=== PATIENT | male | born 1960 | race Caucasian/White ===

== ENCOUNTER 2016-04-20 08:30 | Day surgery (SDC) | payer MEDICARE ==
[2015-06-28 02:24] VITALS: BP 127/66
[~2016-04-20 08:30] MED LIST: PROPOFOL 200 MG/20 ML VIAL IV ONE; PROPOFOL 500 MG/50 ML VIAL IV ONE
--- NOTE | 2016-04-21 09:59 | Operative Note ---
SURGEON: Bart Iglesias MD ANESTHESIA: MAC anesthesia. ESTIMATED BLOOD LOSS: None. COMPLICATIONS: None. PREOPERATIVE DIAGNOSES: 1. Screening colonoscopy. 2. History of colon polyps. POSTOPERATIVE DIAGNOSIS: Colon polyps. PROCEDURE PERFORMED: Colonoscopy with polypectomy. DESCRIPTION OF PROCEDURE: Patient was brought to the endoscopy suite and placed in the left lateral decubitus position. A rectal examination was performed which was normal. The colonoscope was inserted and passed to the cecum. The appendiceal orifice and ileocecal valve were identified. The prep was somewhat poor though decent visualization was gained with washing. In the transverse colon, there were 2 large sessile polyps both approximately 1.5 to 2 cm right next to each other in the transverse colon and both were completely removed with a snare. The sites were hemostatic. The area was tattooed for future reference. The colonoscope was then removed. There were no other polyps seen. FINDINGS: Two 1.5 cm sessile polyps right next to each other in the transverse colon and both were completely removed with a snare and the area tattooed. RECOMMENDATIONS: I recommend a repeat colonoscopy in 1 year due to the poor prep and the polyps. MTDD
== END 2016-04-20 08:32 ==
LOC: OPSURG 08:30
PROVIDERS: ATTEND Colon & Rectal Surgery
DX: Z12.11 Encounter for screening for malignant neoplasm of colon (principal); D12.3 Benign neoplasm of transverse colon
CPT/HCPCS: J2704 ×2; 45385; S1016

== ENCOUNTER 2016-11-06 16:39 | Outpatient (CLI) | payer MEDICARE, OTHER ==
[2015-06-28 02:24] VITALS: BP 127/66
== END 2016-11-06 17:00 ==
LOC: LAB 16:39
PROVIDERS: ATTEND Family Medicine
DX: Z11.59 Encounter for screening for other viral diseases (principal)
CPT/HCPCS: 36415; 86803

== ENCOUNTER 2017-02-14 15:06 | Outpatient (CLI) | payer MEDICARE, MEDICAID ==
[2015-06-28 02:24] VITALS: BP 127/66
[2017-02-14 15:32] LABS: APPEARANCE,URINE Clear (CLEAR); COLOR,URINE Yellow (YELLOW); OCCULT BLOOD,URINE Negative (NEGATIVE); UROBILINOGEN URINE 0.2 Eu (0.2-1.0)
[2017-02-14 15:34] LABS: BASOPHILS % 0.5 (0.0-1.5); EOSINOPHILS % 3.1 % (0.0-6.8); MEAN CORPUSCULAR HEMOGLOBIN 34.5 pg (28.0-34.0); MEAN CORPUSCULAR VOLUME 98.6 fl (80.0-100.0); MONOCYTES % 4.6 % (0.0-11.0); NEUTROPHILS # 6.5 # k/uL (1.4-7.7)
[2017-02-14 15:53] LABS: eGFR (African) > 60; eGFR (Non-African) > 60
--- NOTE | 2017-02-14 16:20 | Diagnostic Imaging Report ---
[facility] [address] [facility] [address] [address] Report Submission Date: Feb 14, 2017 3:49:09 PM DENTAL MECHANIC Patient Study Name: VISHNU ALMEIDA Date: Feb 14, 2017 3:29:05 PM DENTAL MECHANIC Modality Type: CR Gender: M Description: ABDOMEN : 56 Institution: [facility] Physician: SALLY DAVIS - NEREIDA Examination: Obstruction series History: Abdominal discomfort Findings: 4 views obtained of the abdomen. No abnormal dilation of the large or small bowel. Air and stool throughout the large bowel. No suspicious calcification projecting over the renal fossa or the lower pelvic region. Pelvic phleboliths. Lumbar degenerative changes. Impression: Large bowel stool. No obstruction. No suspicious calcifications by plain film sensitivity. Electronically signed on Feb 14, 2017 3:49:09 PM DENTAL MECHANIC by: Madi GARCIA
== END 2017-02-14 15:07 ==
LOC: LAB 15:06
PROVIDERS: ATTEND Family Medicine
DX: I10 Essential (primary) hypertension (principal); R10.9 Unspecified abdominal pain; R10.11 Right upper quadrant pain
CPT/HCPCS: 36415; 74020; 80053; 81002; 85025

== ENCOUNTER 2017-10-26 13:47 | Emergency (ER) | payer MEDICARE ==
[2015-06-28 02:24] VITALS: BP 127/66
[2017-10-26] MEDS ORDERED: 0.9 % SODIUM CHLORIDE 500 ML IV ONE (13:50)
[2017-10-26] MEDS ORDERED: EPINEPHrine 0.1 MG/ML DISP.SYRIN IVP STA ×6 (13:54→14:30)
[2017-10-26] MEDS ORDERED: NALOXONE HCL 2 MG/2 ML ONE (14:00)
[2017-10-26 14:29] LABS: MEAN CORPUSCULAR HEMOGLOBIN 35.3 pg (28.0-34.0); MEAN CORPUSCULAR VOLUME 93.9 fl (80.0-100.0)
[2017-10-26] MEDS ORDERED: SODIUM BICARBONATE 50 MEQ/50 ML SYRINGE IV ONE (14:31)
[2017-10-26 15:02] LABS: eGFR (African) > 60; eGFR (Non-African) > 60
[2017-10-26 15:31] LABS: SEGMENTED NEUTROPHILS % 45 % (39-79)
[2017-10-26 15:32] LABS: EOSINOPHILS % 3 % (0-7); MONOCYTES % 16 % (0-11); TOXIC VACUOLATION PRESENT
[2017-10-26] MEDS ORDERED: 0.9 % SODIUM CHLORIDE 1,000 ML IV ONE (18:12)
--- NOTE | 2017-10-26 18:15 | ED Physician Documentation ---
Cardiopulmonary Resuscitation - HISTORIAN Historian: paramedics - HPI Chief Complaint: CPR Witnessed Arrest?: No CPR Initiated Prior to MD Arrival?: Yes Down-Time before ACLS?: 10 (this is estimate) Further Comments: yes (per paramedics he was not witness collapse. He was thought to have a seizure and he was in full arrest in ambulance.) - INITIAL FINDING Mentation: unresponsive Respirations: agonal respiration Pulse: absent Rhythm: PEA-klaus Glucose: 223 - TREATMENT INITIATED EDUCATIONAL AIDE Oxygen: [id number] CRP/Thumper: Yes (Auto Pulse ) IV Access: Yes IV Fluids: Yes - MEDICATIONS GIVEN EDUCATIONAL AIDE How Many Doses of Epinephrine?: 6 Vasopressin Given?: No Amiodorone Given?: No Sodium Bicarb Given?: Yes Lidocaine Given?: No - ROS CONST: other (unknown ) EYES/ENT: none CVS/RESP: other (Unknown ) MS/SKIN/LYMPH: denies: rash - PAST HX Past History: cardiac disease Allergies/Adverse Reactions: Allergies Allergy/AdvReac Type Severity Reaction Status Date / Time No Known Allergies Allergy Verified 06/27/15 21:47 - SOCIAL HX Smoking History: other (Unknown ) Alcohol Use: heavy - FAMILY HX Family History: No - VITAL SIGNS Vital Signs: Vital Signs Temp Pulse Resp BP Pulse Ox 0 L 5 L 127/66 10/26/17 13:47 10/26/17 13:47 06/27/15 22:55 - REVIEWED ASSESSMENTS Nursing Assessment Reviewed: Yes Vitals Reviewed: Yes Progress - Progress Progress: see nurses note for code progression DG ED Results Lab/Radiology - Lab Results Lab Results: Lab Results 10/26/17 10/26/17 10/26/17 14:20 14:20 14:20 WBC RBC Hgb Hct MCV MCH MCHC RDW Plt Count Seg Neutrophils % Band Neutrophils % Lymphocytes % Monocytes % Eosinophils % Toxic Vacuolation Plt Morphology Comment RBC Morph Comment PT 12.5 Seconds H Seconds (9.4-11.6) INR 1.19 (0.9-1.2) D-Dimer > 5000 ng/mL H ng/mL (6.0-682) Sodium 117 mmol/L L* mmol/L (136-145) Potassium 1.8 mmol/L L* mmol/L (3.5-5.1) Chloride 61 mmol/L L mmol/L (98-107) Carbon Dioxide 33 mmol/L H mmol/L (22-30) BUN 11 mg/dL mg/dL (9-20) Creatinine 1.20 mg/dL mg/dL (0.66-1.25) Est GFR ( Amer) > 60 (60 - ) Est GFR (Non-Af Amer) > 60 (60 - ) Glucose 335 mg/dL H mg/dL (74-106) Calcium 9.4 mg/dL mg/dL (8.4-10.2) Total Bilirubin 1.3 mg/dL mg/dL (0.2-1.3) AST 53 U/L H U/L (15-46) ALT 57 U/L U/L (13-69) Alkaline Phosphatase 108 U/L U/L (38-126) Troponin I 0.16 ng/mL H ng/mL (0.03-0.06) NT-Pro-B Natriuret Pep 308.9 pg/mL H pg/mL (15.0-125.0) Total Protein 7.3 g/dL g/dL (6.3-8.2) Albumin 4.3 g/dL g/dL (3.5-5.0) 10/26/17 14:20 WBC 18.30 K/ul H K/ul (4.00-12.00) RBC 4.55 M/ul M/ul (3.90-5.20) Hgb 16.0 g/dL g/dL (12.0-18.0) Hct 42.7 % % (37.0-53.0) MCV 93.9 fl fl (80.0-100.0) MCH 35.3 pg H pg (28.0-34.0) MCHC 37.6 g/dL H g/dL (30.0-36.0) RDW 13.2 % % (11.3-14.3) Plt Count 243 K/mm3 K/mm3 (130-400) Seg Neutrophils % 45 % % (39-79) Band Neutrophils % 1 % % (0-12) Lymphocytes % 35 % % (16-50) Monocytes % 16 % H % (0-11) Eosinophils % 3 % % (0-7) Toxic Vacuolation Present Plt Morphology Comment Normal (NORMAL) RBC Morph Comment Normal (NORMAL) PT INR D-Dimer Sodium Potassium Chloride Carbon Dioxide BUN Creatinine Est GFR ( Amer) Est GFR (Non-Af Amer) Glucose Calcium Total Bilirubin AST ALT Alkaline Phosphatase Troponin I NT-Pro-B Natriuret Pep Total Protein Albumin - Orders Orders: ED Orders Category Date Time Status CHEST 1VIEW [RAD] Stat Exams 10/26/17 Taken CBC AUTO DIFF Routine Lab 10/26/17 14:20 Completed CMP Routine Lab 10/26/17 14:20 Completed D DIMER Routine Lab 10/26/17 14:20 Completed NT-proBNP Routine Lab 10/26/17 14:20 Completed PT-INR Routine Lab 10/26/17 14:20 Completed TROPONIN I (cTnI) Routine Lab 10/26/17 14:20 Completed 0.9 % Sodium Chloride [Normal Saline] 1,000 ml Med 10/26/17 18:12 Discontinued IV .STK-MED 0.9 % Sodium Chloride [Normal Saline] 500 ml Med 10/26/17 13:50 Discontinued IV NOW EPINEPHrine [Adrenalin] Med 10/26/17 13:54 Discontinued 0.1 mg IVP NOW STA EPINEPHrine [Adrenalin] Med 10/26/17 14:00 Discontinued 0.1 mg IVP NOW STA EPINEPHrine [Adrenalin] Med 10/26/17 14:08 Discontinued 0.1 mg IVP NOW STA EPINEPHrine [Adrenalin] Med 10/26/17 14:14 Discontinued 0.1 mg IVP NOW STA EPINEPHrine [Adrenalin] Med 10/26/17 14:21 Discontinued 0.1 mg IVP NOW STA EPINEPHrine [Adrenalin] Med 10/26/17 14:30 Discontinued 0.1 mg IVP NOW STA Sodium Bicarbonate Med 10/26/17 14:31 Discontinued 50 meq IV STAT ONE Chest Pain Physical Exam - EXAM General Appearance: other (nonresponsive CPR was in progress by EMT's ) EENT: other (Pupils fixed and dilated ) Respiratory: other (occisional agnoal breaths ) CVS: other (no pulse ) Abdomen: soft Skin: cyanosis Neuro: other (unresponsive ) Discharge Clincal Impression: Referrals: Axel Mireles MD [Primary Care Provider] - 2 Days Disposition: 20 Decision to Admit: NO Date of Decison to Admit: 10/26/17 Decision Time: 14:42
--- NOTE | 2017-10-26 18:52 | Diagnostic Imaging Report ---
MYRNA GASTON [facility] [address] [facility] [address], [place]. [address] Report Submission Date: Oct 26, 2017 3:29:23 PM CDT Patient Study Name: ANDREE ALMEIDA Date: Oct 26, 2017 1:56:24 PM CDT Modality Type: DX Gender: M Description: CHEST : 56 Institution: [facility] Physician: MYRNA GASTON Examination: Portable chest History: Evaluate lungs. PCXR, TUBE PLACEMENT, SUPINE (Hx) Comparison exam: None provided. Findings: Single view of the chest demonstrates only partial visualization of the left hemithorax. Prominent cardiac mediastinal silhouette. Prominent parenchymal interstitium. Endotracheal tube: tip 4.5 cm above the annika. Articular degenerative changes. Impression: Limited examination due to patient positioning. Increased interstitial markings suggesting increased volume status. Endotracheal tube: tip 4.5 cm above the annika. Electronically signed on Oct 26, 2017 3:29:23 PM CDT by: Madi GARCIA
== END 2017-10-26 16:58 | disposition expired ==
LOC: ED 13:47
DX: I46.9 Cardiac arrest, cause unspecified (principal)
CPT/HCPCS: 36415; 71045; 80053; 83880; 84484; 85025; 85379; 85610; 96365; 96375; 99285; J0171; J2310; J7060; S1016